=== PATIENT | male | born 1950 | race Caucasian/White ===

== ENCOUNTER 2017-11-30 15:38 | Emergency (ER) | payer OTHER ==
[2017-11-30 15:42] VITALS: TEMP 99.4
[2017-11-30] MEDS ORDERED: SODIUM CHLORIDE 0.9% 1,000 ML IV STA (15:50)
--- NOTE | 2017-11-30 15:53 | ED ---
General Adult HPI - General Chief complaint: Back Pain/Injury Stated complaint: Abd Pain Time Seen by Provider: 11/30/17 15:43 Source: patient, RN notes reviewed Mode of arrival: ambulatory Limitations: no limitations - History of Present Illness Initial comments: Patient 67-year-old male presenting to the emergency room today with a chief complaint of some lower back discomfort and some dysuria over the last 2 or 3 days. Patient does admit that he has tingling sensation lower size of his back. He states that his noticed that it miller when he urinates. He does not that he's had similar symptoms once in the past approximately 5 years ago and was related to his prostate. He states he does have a history of enlarged prostate. He did go to his family doctor proximally a month and a half ago for an annual physical. He states that the symptoms started 3 days ago seems to be increasing. Patient denies any other complaints symptoms at this time. Patient denies any recent fever, chills, shortness of breath, chest pain, abdominal pain , nausea or vomiting, numbness or tingling, hematuria, constipation or diarrhea , headaches or visual changes, or any other complaints. - Related Data Home Medications Medication Instructions Recorded Confirmed Actifed 1 tab PO DAILY 10/31/13 11/30/17 Aspirin 81 mg PO DAILY 10/31/13 11/30/17 Benazepril HCl 20 mg PO DAILY 10/31/13 11/30/17 Lansoprazole [Prevacid] 30 mg PO DAILY 10/31/13 11/30/17 Simvastatin [Zocor] 20 mg PO DAILY 10/31/13 11/30/17 Calcium Carbonate [Calcium] 600 mg PO DAILY 11/30/17 11/30/17 Hydrocortisone Cream 1 applic TOPICAL DAILY PRN 11/30/17 11/30/17 [Hydrocortisone 1% Cream] Naproxen Sodium [Aleve] 220 mg PO DAILY PRN 11/30/17 11/30/17 [place]-3 Fatty Acids/Fish Oil [Fish 1 cap PO DAILY 11/30/17 11/30/17 Oil 1,000 mg Softgel] Sildenafil Citrate [Viagra] 50 mg PO ONCE PRN 11/30/17 11/30/17 diphenhydrAMINE [Benadryl] 25 mg PO HS PRN 11/30/17 11/30/17 Previous Rx's Medication Instructions Recorded Ciprofloxacin HCl [Cipro] 500 mg PO Q12HR #28 day 11/30/17 Allergies Allergy/AdvReac Type Severity Reaction Status Date / Time warfarin sodium Allergy Swelling Verified 11/30/17 15:42 [From Coumadin] IN MOUTH adhesive AdvReac Rash/Hives Verified 11/30/17 15:58 latex AdvReac Rash/Hives Verified 11/30/17 15:58 SEASONAL AdvReac RUNNY Uncoded 11/30/17 15:42 NOSE, SNEEZING Review of Systems ROS Statement: Those systems with pertinent positive or pertinent negative responses have been documented in the HPI. ROS Other: All systems not noted in ROS Statement are negative. Past Medical History Past Medical History: Diabetes Mellitus, GERD/Reflux, Hyperlipidemia, Hypertension, Skin Disorder Additional Past Medical History / Comment(s): "BORDERLINE DM" History of Any Multi-Drug Resistant Organisms: None Reported Past Surgical History: Hernia Repair, Joint Replacement Additional Past Surgical History / Comment(s): TOTAL RT HIP Past Anesthesia/Blood Transfusion Reactions: No Reported Reaction Past Psychological History: No Psychological Hx Reported Smoking Status: Never smoker Past Alcohol Use History: Occasional Past Drug Use History: None Reported General Exam - General Exam Comments Initial Comments: General: The patient is awake and alert, in no distress, and does not appear acutely ill. Eye: Pupils are equal, round and reactive to light, extra-ocular movements are intact. No nystagmus. There is normal conjunctiva bilaterally. No signs of icterus. Ears, nose, mouth and throat: There are moist mucous membranes and no oral lesions. Neck: The neck is supple, there is no tenderness or JVD. Cardiovascular: There is a regular rate and rhythm. No murmur, rub or gallop is appreciated. Respiratory: Lungs are clear to auscultation, respirations are non-labored, breath sounds are equal. No wheezes, stridor, rales, or rhonchi. Gastrointestinal: Soft, non-distended, non-tender abdomen without masses or organomegaly noted. There is no rebound or guarding present. No CVA tenderness. Musculoskeletal: Normal ROM, no tenderness. Strength 5/5. Sensation intact. Pulses equal bilaterally 2+. Neurological: A&O x 3. CN II-XII intact, There are no obvious motor or sensory deficits. Coordination appears grossly intact. Speech is normal. Skin: Skin is warm and dry and no rashes or lesions are noted. Psychiatric: Cooperative, appropriate mood & affect, normal judgment. Limitations: no limitations Course Vital Signs 11/30/17 15:40 Temperature 99.4 F Pulse Rate 104 H Respiratory 20 Rate Blood Pressure 123/73 O2 Sat by Pulse 96 Oximetry Medical Decision Making - Medical Decision Making Patient's labs been reviewed does show 13,000 white count. Patient urinalysis reviewed and 65 white cells. Patient does admit to enlarged prostate as part of his history. He states he has had a urinary tract infection once in the past proximate 5 years ago. Patient will be treated for a prostatitis with antibiotics. Given dose of Rocephin here in emergency room discharged home on Cipro. Advised follow-up with urologist. - Lab Data Result diagrams: 11/30/17 15:55 11/30/17 15:55 Lab Results 11/30/17 11/30/17 11/30/17 Range/Units 15:55 15:55 15:55 WBC 13.7 H (3.8-10.6) k/uL RBC 4.94 (4.30-5.90) m/uL Hgb 15.0 (13.0-17.5) gm/dL Hct 45.0 (39.0-53.0) % MCV 91.1 (80.0-100.0) fL MCH 30.3 (25.0-35.0) pg MCHC 33.3 (31.0-37.0) g/dL RDW 13.3 (11.5-15.5) % Plt Count 228 (150-450) k/uL Neutrophils % 88 % Lymphocytes % 6 % Monocytes % 5 % Eosinophils % 1 % Basophils % 0 % Neutrophils # 12.0 H (1.3-7.7) k/uL Lymphocytes # 0.8 L (1.0-4.8) k/uL Monocytes # 0.6 (0-1.0) k/uL Eosinophils # 0.2 (0-0.7) k/uL Basophils # 0.0 (0-0.2) k/uL Sodium 135 L (137-145) mmol/L Potassium 4.2 (3.5-5.1) mmol/L Chloride 98 (98-107) mmol/L Carbon Dioxide 23 (22-30) mmol/L Anion Gap 14 mmol/L BUN 10 (9-20) mg/dL Creatinine 0.88 (0.66-1.25) mg/dL Est GFR (CKD-EPI)AfAm >90 (>60 ml/min/1.73 sqM) Est GFR (CKD-EPI)NonAf 90 (>60 ml/min/1.73 sqM) Glucose 210 H (74-99) mg/dL Calcium 9.1 (8.4-10.2) mg/dL Total Bilirubin 1.4 H (0.2-1.3) mg/dL AST 39 (17-59) U/L ALT 59 (21-72) U/L Alkaline Phosphatase 80 (38-126) U/L Total Protein 7.0 (6.3-8.2) g/dL Albumin 4.4 (3.5-5.0) g/dL Urine Color Yellow Urine Appearance Cloudy (Clear) Urine pH 6.0 (5.0-8.0) Ur Specific Badger 1.021 (1.001-1.035) Urine Protein 1+ H (Negative) Urine Glucose (UA) Trace H (Negative) Urine Ketones 1+ H (Negative) Urine Blood Trace H (Negative) Urine Nitrite Negative (Negative) Urine Bilirubin Negative (Negative) Urine Urobilinogen 4.0 (<2.0) mg/dL Ur Leukocyte Esterase Large H (Negative) Urine RBC 6 H (0-5) /hpf Urine WBC 65 H (0-5) /hpf Ur Squamous Epith Cells <1 (0-4) /hpf Urine Bacteria Few H (None) /hpf Urine Mucus Moderate H (None) /hpf Disposition Clinical Impression: Prostatitis Disposition: HOME SELF-CARE Condition: Good Instructions: Prostatitis (ED) Additional Instructions: Please use medication as discussed. Please follow-up with urologist/family doctor in the next 2 days of symptoms have not improved. Please return to emergency room if the symptoms increase or worsen or for any other concerns. Prescriptions: Ciprofloxacin HCl [Cipro] 500 mg PO Q12HR #28 day Is patient prescribed a controlled substance at d/c from ED?: No Referrals: Toan Louis MD [Primary Care Provider] - 1-2 days Time of Disposition: 17:00
[2017-11-30 16:12] LABS: Appearance,Urine Cloudy (Clear); Bacteria,Urine Few /hpf; Basophils % (A) 0 %; Bilirubin,Urine Negative (Negative); Blood,Urine Trace (Negative); Color,Urine Yellow; Eosinophils # (A) 0.2 k/uL (0-0.7); Eosinophils % (A) 1 %; Glucose,Urine (UA) Trace (Negative); Ketones,Urine 1+ (Negative); Leukocyte Esterase,Urine Large (Negative); Lymphocytes # (A) 0.8 k/uL (1.0-4.8); Lymphocytes % (A) 6 %; MCH 30.3 pg (25.0-35.0); MCHC 33.3 g/dL (31.0-37.0); MCV 91.1 fL (80.0-100.0); Mean Platelet Volume 6.4; Monocytes # (A) 0.6 k/uL (0-1.0); Monocytes % (A) 5 %; Mucus,Urine Moderate /hpf; Neutrophils % (A) 88 %; Nitrite,Urine Negative (Negative); Platelet Count 228 k/uL (150-450); Protein,Urine 1+ (Negative); RBC 4.94 m/uL (4.30-5.90); RBC,Urine 6 /hpf (0-5); RDW 13.3 % (11.5-15.5); Specific Gravity,Urine 1.021 (1.001-1.035); Squamous Epithelial Cell,Urine <1 /hpf (0-4); WBC 13.7 k/uL (3.8-10.6); WBC,Urine 65 /hpf (0-5)
[2017-11-30 16:19] LABS: ALT 59 U/L (21-72); AST 39 U/L (17-59); Albumin 4.4 g/dL (3.5-5.0); Alkaline Phosphatase 80 U/L (38-126); Anion Gap 14 mmol/L; Blood Urea Nitrogen 10 mg/dL (9-20); Calcium 9.1 mg/dL (8.4-10.2); Carbon Dioxide 23 mmol/L (22-30); Chloride 98 mmol/L (98-107); Glucose 210 mg/dL (74-99); Potassium 4.2 mmol/L (3.5-5.1); Sodium 135 mmol/L (137-145); Total Bilirubin 1.4 mg/dL (0.2-1.3)
[2017-11-30] MEDS ORDERED: cefTRIAXone 2,000 MG in SODIUM CHLORIDE 0.9% 100 ML IVPB STA (17:00)
[2017-11-30] MEDS ORDERED: cefTRIAXone IN SWFI 2,000 MG/20 ML SYRINGE IVP STA (17:03)
[2017-11-30 17:22] VITALS: BP 136/60; PULSE 92; RESP 18
== END 2017-11-30 17:29 | disposition home or self-care (01) ==
LOC: EC 15:38
DX: N41.9 Inflammatory disease of prostate, unspecified (principal); K21.9 Gastro-esophageal reflux disease without esophagitis; E78.5 Hyperlipidemia, unspecified; I10 Essential (primary) hypertension; Z79.82 Long term (current) use of aspirin; Z79.899 Other long term (current) drug therapy; Z88.8 Allergy status to other drugs, medicaments and biological substances; Z91.048 Other nonmedicinal substance allergy status; Z91.040 Latex allergy status; Z96.641 Presence of right artificial hip joint
CPT/HCPCS: 36415; 80053; 85025; 81001; 87086; 99283; 96374; 96361; J0696; 87077; 87186

== ENCOUNTER → 2021-11-27 | Outpatient (CLI) | payer BC ==
--- NOTE | 2021-11-27 12:53 | US ---
EXAMINATION TYPE: US abdomen complete DATE OF EXAM: 11/27/2021 COMPARISON: NONE CLINICAL HISTORY: R79.89 ELEVATED LIVER FUNCTIONS. elevated labs, no symptoms EXAM MEASUREMENTS: Liver Length: 17.3 cm Gallbladder Wall: 0.2 cm CBD: 0.3 cm Spleen: 11.4 cm Right Kidney: 10.4 x 3.8 x 6.0 cm Left Kidney: 10.9 x 4.8 x 6.0 cm Pancreas: wnl Liver: difficult to penetrate Gallbladder: sludge seen within dependant portion Evidence for sonographic Clifford's sign: no CBD: wnl Spleen: wnl Right Kidney: wnl Left Kidney: wnl Upper IVC: wnl Abd Aorta: wnl The visualized liver is heterogeneously hyperechoic. Evaluation for focal masses suboptimal due to th e heterogeneity. No surrounding ascites. The intrahepatic portion of the IVC and visualized mid and d istal abdominal aorta are within normal limits. There is no evidence of cholelithiasis. Common bile duct is unremarkable. The visualized portions of the pancreas are homogenous. The spleen is normal in size. Kidneys are symmetric and free of hydronephrosis. No renal lesions are seen. IMPRESSION: Heterogeneous hyperechoic appearance of liver consistent with diffuse fatty infiltration and/or underlying hepatocellular disease. Patient may benefit with ultrasound-guided elastography and /or random sampling to further evaluate if desired.
== END | disposition home or self-care (01) ==
LOC: RADUSWWP 08:19
PROVIDERS: ATTEND Internal Medicine
DX: R79.89 Other specified abnormal findings of blood chemistry (principal)
CPT/HCPCS: 76700

== ENCOUNTER 2021-12-07 10:21 | Emergency (ER) | payer BC, MEDICARE ==
[2021-12-07 10:25] VITALS: BP 105/69; PULSE 106; RESP 16; TEMP 97.6
[2021-12-07 11:03] LABS: Mucus,Urine Many /hpf; RBC,Urine >182 /hpf (0-5); WBC,Urine >182 /hpf (0-5)
[2021-12-07 11:08] LABS: Appearance,Urine Bloody (Clear)
[2021-12-07] MEDS ORDERED: SODIUM CHLORIDE 0.9% 1,000 ML IV STA (11:20)
--- NOTE | 2021-12-07 11:34 | ED ---
General Adult HPI - General Chief complaint: Urogenital Stated complaint: Blood in urine/chills Source: patient Mode of arrival: ambulatory Limitations: no limitations - History of Present Illness Initial comments: Patient is a 71-year-old male presents to the emergency room with sudden onset of gross hematuria along with urinary frequency. He reports that the urinary frequency began yesterday. He reports that he had hematuria many years ago due to a UTI but was not evaluated by urology at that time. He states that the blood in his urine began approximately 3 hours ago. He also states that he is concerned regarding an allergic reaction to oysters that he ate earlier in the week. He states that he ate them 3 weeks ago as well and developed some urticaria along with shortness of breath and a cough. He is complaining of a cough and chills but denies any shortness of breath, chest pain, nausea, vomiting or diarrhea at this time. At that time 3 weeks ago he did take a COVID test that was negative. He denies any influenza or COVID exposure. He reports that he has been told that he does have an enlarged prostate but denies any concern for prostate cancer. He denies past medical history of kidney or urinary stones. He denies any family history of prostate, bladder or renal cell carcinoma or nephrolithiasis. He has a past medical history significant for nancy medellin diabetes, hypertension and hyperlipidemia. He denies any other complaints or concerns at this time. - Related Data Home Medications Medication Instructions Recorded Confirmed Actifed 1 tab PO DAILY 10/31/13 12/08/17 Aspirin 81 mg PO DAILY 10/31/13 12/08/17 Benazepril HCl 20 mg PO DAILY 10/31/13 12/08/17 Lansoprazole [Prevacid] 30 mg PO DAILY 10/31/13 12/08/17 Simvastatin [Zocor] 20 mg PO DAILY 10/31/13 12/08/17 Calcium Carbonate [Calcium] 600 mg PO DAILY 11/30/17 12/08/17 Hydrocortisone Cream 1 applic TOPICAL DAILY PRN 11/30/17 12/08/17 [Hydrocortisone 1% Cream] Naproxen Sodium [Aleve] 220 mg PO DAILY PRN 11/30/17 12/08/17 [place]-3 Fatty Acids/Fish Oil [Fish 1 cap PO DAILY 11/30/17 12/08/17 Oil 1,000 mg Softgel] Sildenafil Citrate [Viagra] 50 mg PO ONCE PRN 11/30/17 12/08/17 diphenhydrAMINE [Benadryl] 25 mg PO HS PRN 11/30/17 12/08/17 Previous Rx's Medication Instructions Recorded Ciprofloxacin HCl [Cipro] 500 mg PO Q12HR #28 day 11/30/17 Ciprofloxacin HCl 500 mg PO Q12HR 10 Days #20 tablet 12/07/21 Allergies Allergy/AdvReac Type Severity Reaction Status Date / Time warfarin sodium Allergy Swelling Verified 12/07/21 10:26 [From Coumadin] IN MOUTH adhesive AdvReac Rash/Hives Verified 12/07/21 10:26 latex AdvReac Rash/Hives Verified 12/07/21 10:26 SEASONAL AdvReac Unknown RUNNY Uncoded 12/07/21 10:26 NOSE, SNEEZING Review of Systems ROS Statement: Those systems with pertinent positive or pertinent negative responses have been documented in the HPI. ROS Other: All systems not noted in ROS Statement are negative. Past Medical History Past Medical History: Diabetes Mellitus, GERD/Reflux, Hyperlipidemia, Hypertension, Skin Disorder Additional Past Medical History / Comment(s): "BORDERLINE DM" History of Any Multi-Drug Resistant Organisms: None Reported Past Surgical History: Hernia Repair, Joint Replacement Additional Past Surgical History / Comment(s): TOTAL RT HIP Past Anesthesia/Blood Transfusion Reactions: No Reported Reaction Past Psychological History: No Psychological Hx Reported Past Alcohol Use History: Occasional Past Drug Use History: None Reported General Exam Limitations: no limitations General appearance: alert, in no apparent distress Head exam: Present: atraumatic, normocephalic, normal inspection Eye exam: Present: normal appearance, PERRL, EOMI. Absent: scleral icterus, conjunctival injection, periorbital swelling ENT exam: Present: normal exam, mucous membranes moist Neck exam: Present: normal inspection Respiratory exam: Present: normal lung sounds bilaterally. Absent: respiratory distress, wheezes, rales, rhonchi, stridor Cardiovascular Exam: Present: regular rate, normal rhythm, normal heart sounds. Absent: systolic murmur, diastolic murmur, rubs, gallop, clicks GI/Abdominal exam: Present: soft, tenderness (mid lower ), normal bowel sounds Rectal exam: Present: deferred Extremities exam: Present: normal inspection, full ROM, normal capillary refill. Absent: tenderness, pedal edema, joint swelling, calf tenderness Neurological exam: Present: alert, oriented X3, CN II-XII intact Psychiatric exam: Present: normal affect, normal mood Skin exam: Present: warm, dry, intact, normal color. Absent: rash Course Vital Signs 12/07/21 10:23 Temperature 97.6 F Pulse Rate 106 H Respiratory 16 Rate Blood Pressure 105/69 O2 Sat by Pulse 95 Oximetry Medical Decision Making - Medical Decision Making Due to gross hematuria will check CBC, CMP along with CT abdomen and pelvis. Will give IV hydration and monitor. Leukocytosis noted consistent with infection of cystitis. Computed tomography scan shows probable infectious cystitis however cannot rule out neoplasm and recommend urology consult. Case discussed with Dr. Blevins to advise treatment for urinary tract infection urinary culture and follow-up outpatient in their office. Case discussed with Dr. Rosario Will give dose of IVP Rocephin and discharged home on oral antibiotics with encouraged of good fluid intake and strict return parameters. - Lab Data Result diagrams: 12/07/21 11:47 12/07/21 11:47 Lab Results 12/07/21 12/07/21 12/07/21 Range/Units 10:46 11:47 11:47 WBC 18.5 H (3.8-10.6) k/uL RBC 4.63 (4.30-5.90) m/uL Hgb 14.5 (13.0-17.5) gm/dL Hct 43.4 (39.0-53.0) % MCV 93.7 (80.0-100.0) fL MCH 31.3 (25.0-35.0) pg MCHC 33.4 (31.0-37.0) g/dL RDW 12.8 (11.5-15.5) % Plt Count 315 (150-450) k/uL MPV 7.6 Neutrophils % 81 % Lymphocytes % 9 % Monocytes % 7 % Eosinophils % 1 % Basophils % 1 % Neutrophils # 14.9 H (1.3-7.7) k/uL Lymphocytes # 1.7 (1.0-4.8) k/uL Monocytes # 1.2 H (0-1.0) k/uL Eosinophils # 0.2 (0-0.7) k/uL Basophils # 0.1 (0-0.2) k/uL Sodium 133 L (137-145) mmol/L Potassium 4.4 (3.5-5.1) mmol/L Chloride 100 (98-107) mmol/L Carbon Dioxide 22 (22-30) mmol/L Anion Gap 11 mmol/L BUN 13 (9-20) mg/dL Creatinine 0.85 (0.66-1.25) mg/dL Est GFR (CKD-EPI)AfAm >90 (>60 ml/min/1.73 sqM) Est GFR (CKD-EPI)NonAf 88 (>60 ml/min/1.73 sqM) Glucose 157 H (74-99) mg/dL Calcium 9.1 (8.4-10.2) mg/dL Total Bilirubin 1.4 H (0.2-1.3) mg/dL AST 26 (17-59) U/L ALT 31 (4-49) U/L Alkaline Phosphatase 75 (38-126) U/L Total Protein 6.7 (6.3-8.2) g/dL Albumin 4.0 (3.5-5.0) g/dL Urine Appearance Bloody (Clear) Urine RBC >182 H (0-5) /hpf Urine WBC >182 H (0-5) /hpf Urine WBC Clumps Many H (None) /hpf Urine Mucus Many H (None) /hpf Coronavirus (PCR) (Not Detectd) Influenza Type A RNA (Not Detectd) Influenza Type B (PCR) (Not Detectd) 12/07/21 12/07/21 Range/Units 11:47 11:47 WBC (3.8-10.6) k/uL RBC (4.30-5.90) m/uL Hgb (13.0-17.5) gm/dL Hct (39.0-53.0) % MCV (80.0-100.0) fL MCH (25.0-35.0) pg MCHC (31.0-37.0) g/dL RDW (11.5-15.5) % Plt Count (150-450) k/uL MPV Neutrophils % % Lymphocytes % % Monocytes % % Eosinophils % % Basophils % % Neutrophils # (1.3-7.7) k/uL Lymphocytes # (1.0-4.8) k/uL Monocytes # (0-1.0) k/uL Eosinophils # (0-0.7) k/uL Basophils # (0-0.2) k/uL Sodium (137-145) mmol/L Potassium (3.5-5.1) mmol/L Chloride (98-107) mmol/L Carbon Dioxide (22-30) mmol/L Anion Gap mmol/L BUN (9-20) mg/dL Creatinine (0.66-1.25) mg/dL Est GFR (CKD-EPI)AfAm (>60 ml/min/1.73 sqM) Est GFR (CKD-EPI)NonAf (>60 ml/min/1.73 sqM) Glucose (74-99) mg/dL Calcium (8.4-10.2) mg/dL Total Bilirubin (0.2-1.3) mg/dL AST (17-59) U/L ALT (4-49) U/L Alkaline Phosphatase (38-126) U/L Total Protein (6.3-8.2) g/dL Albumin (3.5-5.0) g/dL Urine Appearance (Clear) Urine RBC (0-5) /hpf Urine WBC (0-5) /hpf Urine WBC Clumps (None) /hpf Urine Mucus (None) /hpf Coronavirus (PCR) Not Detected (Not Detectd) Influenza Type A RNA Not Detected (Not Detectd) Influenza Type B (PCR) Not Detected (Not Detectd) - Radiology Data Radiology results: report reviewed, image reviewed CT abdomen and pelvis impression 1. Probable infectious cystitis. Cystitis of other etiology not excluded. Neoplasm is also within differential diagnosis. Urology consult advice. Disposition Clinical Impression: Acute infective cystitis Disposition: HOME SELF-CARE Condition: Stable Instructions (If sedation given, give patient instructions): Urinary Tract Infection in Men (ED), Hematuria (ED) Additional Instructions: Please complete antibiotic course as prescribed. Drink plenty of fluids. If at any point bleeding and urine worsens or decrease in urine output please return t o the emergency room or seek immediate medical attention as appropriate. Please return to the Emergency Department if symptoms worsen or any other concerns. Prescriptions: Ciprofloxacin HCl 500 mg PO Q12HR 10 Days #20 tablet Is patient prescribed a controlled substance at d/c from ED?: No Referrals: David Canchola MD [Primary Care Provider] - 1-2 days Danny Blevins MD [STAFF PHYSICIAN] - 1-2 days Time of Disposition: 13:18
[2021-12-07 11:55] LABS: Basophils # (A) 0.1 k/uL (0-0.2); Basophils % (A) 1 %; Eosinophils # (A) 0.2 k/uL (0-0.7); Eosinophils % (A) 1 %; HCT 43.4 % (39.0-53.0); HGB 14.5 gm/dL (13.0-17.5); Lymphocytes # (A) 1.7 k/uL (1.0-4.8); Lymphocytes % (A) 9 %; MCH 31.3 pg (25.0-35.0); MCHC 33.4 g/dL (31.0-37.0); MCV 93.7 fL (80.0-100.0); Mean Platelet Volume 7.6; Monocytes # (A) 1.2 k/uL (0-1.0); Monocytes % (A) 7 %; Neutrophils # (A) 14.9 k/uL (1.3-7.7); Neutrophils % (A) 81 %; Platelet Count 315 k/uL (150-450); RBC 4.63 m/uL (4.30-5.90); RDW 12.8 % (11.5-15.5); WBC 18.5 k/uL (3.8-10.6)
[2021-12-07 12:03] LABS: ALT 31 U/L (4-49); AST 26 U/L (17-59); African American GFR (CKD) >90 (>60 ml/min/1.73 sqM); Alkaline Phosphatase 75 U/L (38-126); Anion Gap 11 mmol/L; Blood Urea Nitrogen 13 mg/dL (9-20); Calcium 9.1 mg/dL (8.4-10.2); Carbon Dioxide 22 mmol/L (22-30); Chloride 100 mmol/L (98-107); Glucose 157 mg/dL (74-99); Non-African American GFR(CKD) 88 (>60 ml/min/1.73 sqM); Potassium 4.4 mmol/L (3.5-5.1); Sodium 133 mmol/L (137-145); Total Bilirubin 1.4 mg/dL (0.2-1.3); Total Protein 6.7 g/dL (6.3-8.2)
--- NOTE | 2021-12-07 13:01 | CT ---
EXAMINATION TYPE: CT abdomen pelvis w con DATE OF EXAM: 12/07/2021 COMPARISON: None HISTORY: New onset of gross hematuria CT DLP: 1585.8 mGycm CONTRAST: CT scan of the abdomen and pelvis is performed without Oral Contrast and with IV Contrast, patient in jected with 100 mL of Isovue 300. FINDINGS: LUNG BASES-: No visible nodule. No infiltrate. LIVER/GB: No calcified gallstones. No space occupying hepatic lesion. Biliary tree is of normal ca liber. Focal fat adjacent to the falciform ligament. Mild hepatic steatosis. PANCREAS: No inflammation. No distinct mass. SPLEEN: No splenic enlargement. No lesion seen. ADRENALS: No nodule. No thickening. KIDNEYS/BLADDER: No hydronephrosis. No nephrolithiasis. No distinct renal mass. Severe urinary jose de jesus dder wall thickening which is circumferential and likely reflects underlying nonspecific cystitis. Ne oplasm not excluded. Urology consult advised. BOWEL: Normal appendix. Normal bowel caliber. No inflammation. GENITAL ORGANS: No gross abnormality. LYMPH NODES: No greater than 1cm abdominal or pelvic lymph nodes are appreciated. AORTA: No significant abnormality. OSSEOUS STRUCTURES: Right hip prosthesis with resultant streak artifact. OTHER: No significant additional abnormality is seen. IMPRESSION: 1. Probable infectious cystitis. Cystitis of other etiology not excluded. Neoplasm is also within the differential diagnosis. Urology consult advised.
[2021-12-07] MEDS ORDERED: cefTRIAXone IN SWFI 1,000 MG/10 ML SYRINGE IVP STA (13:13)
[2021-12-07 14:52] LABS: Appearance,Urine Clear (Clear); Bilirubin,Urine Negative (Negative); Blood,Urine Large (Negative); Color,Urine Red; Glucose,Urine (UA) Negative (Negative); Ketones,Urine 2+ (Negative); Leukocyte Esterase,Urine Small (Negative); Nitrite,Urine Negative (Negative); Protein,Urine 1+ (Negative); RBC,Urine >182 /hpf (0-5); Urobilinogen,Urine <2.0 mg/dL (<2.0); WBC,Urine 3 /hpf (0-5)
[2021-12-07 14:53] LABS: Specific Gravity,Urine >1.050 (1.001-1.035)
== END 2021-12-07 14:23 | disposition home or self-care (01) ==
LOC: EC 10:21
DX: N30.01 Acute cystitis with hematuria (principal); Z20.822 Contact with and (suspected) exposure to COVID-19; I10 Essential (primary) hypertension; E78.5 Hyperlipidemia, unspecified; K21.9 Gastro-esophageal reflux disease without esophagitis; Z79.82 Long term (current) use of aspirin; Z79.899 Other long term (current) drug therapy
CPT/HCPCS: 36415; 80053; 85025; 81001; 87086; 87502; 87635; 74177; 99284; 96374; 96360; 96361; J0696; Q9967; 87077; 87186

== ENCOUNTER → 2023-03-25 | Outpatient (CLI) | payer BC, MEDICARE ==
[2023-03-25 11:53] VITALS: BP 144/84; PULSE 82; RESP 15; TEMP 98.6
--- NOTE | 2023-03-25 14:43 | P.PAINPG ---
PQRS Measure Charge Sheet Comment: HISTORY OF PRESENT ILLNESS: 72 yr old male as a referral from Dr Pitts presents today w severe and chronic LBP x 1 yr secondary to post laminectomy syndrome for evaluation. Pt states pain level is provoked at 6/10 in intensity, constant, localized in the mid to lower lumbar spine, achy in character w shooting pain towards the L ankle. Pain is provoked by weight bearing activity. Pain is alleviated by PT x 6 wks in Sep 2022, medications (Aleve), repositioning and rest. Oswestry axial pain score at 26. PMH: OA, DM II, GERD, Hyperlipidemia, HTN PSH: Hernia Repair, R Total Hip Replacement, L4-L5 Discectomy SH: No tobacco use, Occasional ETOH use, No illicit drug use FH: Non contributory All: See list Meds: See list REVIEW OF ORGAN SYSTEMS: CONSTITUTIONAL: No fevers or chills. No recent weight loss. NEUROLOGICAL: + numbness and tingling along the distal extremities. No seizure disorders or headaches. MUSCULOSKELETAL: + pain PSYCHIATRIC: Denies current depression or suicidal thoughts. Physical Examinations : Constitutional : Cooperative , not in acute distress . Neurologic : Cranial nerve II to XII intact. No focal neurological deficits. Psychiatric : alert & oriented x 3. Matching mood & appropriate affect. Judgment & insight intact. Musculoskeletal : Cervical Spine Motor strength in the deltoid and yasmani ps: Normal right side. Normal Left side Motor strength biceps and the wrist extensors: Normal right side . Normal left side Motor strength in the triceps muscle: Normal right side. Normal left side Deep tendon reflexes: Normal at the biceps. Normal at Brachioradialis. Normal at triceps Vertebral body tenderness to deep palpation over Cervical facet loading test: positive bilaterally Spurling test: positive bilaterally Neck distraction test: positive bilaterally Bessie sign: positive bilaterally Lumbar spine Motor strength lower extremities ,thigh and legs 5/5 Right side , 5/5 Left side Deep tendon reflexes : Normal Knee Jerk. Normal Ankle Jerk Vertebral body tenderness over Herrera Test positive Lumbar facet Loading Test: positive Right / positive Left Range of motion of the lumbar spine Flexion 30 degrees, extension 10 degrees Straight Leg Raise test: Left/ Right positive at degree Susi test: positive right / positive left. Severe tenderness over the Sacroiliac joint on the Right / Left sides Gaenslen test: positive bilaterally Seated flexion test: positive bilaterally. Sacral spine : Severe tenderness over the Sacroiliac joint: right side / left side Range of motion: Flexion of the lumbar spine <60 degrees Range of motion: Extension of the lumbar spine <20 degrees Gaenslen's Test positive Flakito's Test positive Susi test: positive right side / left side Thigh Thrust Test Sacral Thrust Test Imaging: MRI noncontrast of the lumbar spine from 08/26/22 reviewed Assessment/ Plan : Post laminectomy syndrome Recommendation of PT x 6 wks M51.36. RTC in 6 wks for a re evaluation. All questions answered. I have spent greater than 30 minutes on patient care today. Dr Crespo was available by phone for the evaluation of this patient. The time was used to review the medical records including relevant urine studies and Prescription history (MAPs), review of the available imaging, evaluation and examination of the patient, coordination of care with the medical staff and if applicable referring physicians, as well as creation of the medical record PQRS Narrative: Smoking Status Never smoker Home Medications: Ambulatory Orders Actifed 1 tab PO DAILY 10/31/13 Aspirin 81 mg PO DAILY 10/31/13 Benazepril HCl 20 mg PO DAILY 10/31/13 Lansoprazole [Prevacid] 30 mg PO DAILY 10/31/13 Simvastatin [Zocor] 20 mg PO DAILY 10/31/13 Calcium Carbonate [Calcium] 600 mg PO DAILY 11/30/17 Ciprofloxacin HCl [Cipro] 500 mg PO Q12HR #28 day 11/30/17 Hydrocortisone Cream [Hydrocortisone 1% Cream] 1 applic TOPICAL DAILY PRN 11/30/17 Naproxen Sodium [Aleve] 220 mg PO DAILY PRN 11/30/17 [place]-3 Fatty Acids/Fish Oil [Fish Oil 1,000 mg Softgel] 1 cap PO DAILY 11/30/17 Sildenafil Citrate [Viagra] 50 mg PO ONCE PRN 11/30/17 diphenhydrAMINE [Benadryl] 25 mg PO HS PRN 11/30/17 Ciprofloxacin HCl 500 mg PO Q12HR 10 Days #20 tablet 12/07/21 Controlled Substance Measures - Controlled Substance Measures Is patient prescribed a controlled substance at discharge?: No
== END ==
LOC: PNWHC3 08:49
PROVIDERS: ATTEND Specialist
DX: M48.061 Spinal stenosis, lumbar region without neurogenic claudication (principal); M96.1 Postlaminectomy syndrome, not elsewhere classified; M19.90 Unspecified osteoarthritis, unspecified site; E11.9 Type 2 diabetes mellitus without complications; K21.9 Gastro-esophageal reflux disease without esophagitis; E78.5 Hyperlipidemia, unspecified; I10 Essential (primary) hypertension; Z91.048 Other nonmedicinal substance allergy status; Z91.040 Latex allergy status; Z91.09 Other allergy status, other than to drugs and biological substances; Z88.8 Allergy status to other drugs, medicaments and biological substances; Z79.82 Long term (current) use of aspirin; Z79.899 Other long term (current) drug therapy
CPT/HCPCS: 99211

== ENCOUNTER 2023-04-09 06:27 | Day surgery (SDC) | payer BC ==
[2023-04-09 07:21] LABS: Glucose,Whole Blood 133 mg/dL (70-110)
[2023-04-09 07:24] VITALS: TEMP 97.6
[2023-04-09] MEDS ORDERED: LACTATED RINGERS 1,000 ML IV SCH (07:28)
[2023-04-09] MEDS ORDERED: IOPAMIDOL M200 10 ML VIAL ONE (07:38)
[2023-04-09] MEDS ORDERED: methylPREDNISolone ACETATE 40 MG/ML 1 ML VIAL ONE (07:38)
--- NOTE | 2023-04-09 07:44 | P.PCN ---
Date of Procedure: 04/09/23 Procedure(s) Performed: PREOPERATIVE DIAGNOSIS: 1- Lumbar Degenerative Disc Diseases 2-Lumbar spondylosis with Facet arthropathy without myelopathy. POSTOPERATIVE DIAGNOSIS: 1-lumbar degenerative disc disease. 2-lumbar spondylosis with facet arthropathy without myelopathy. PROCEDURE 1. Lumbar epidural steroid injection under fluoroscopic guidance at the L5-S1 level. (Fluoroscopy imaging was available in radiology department) 2. Lumbar epidurogram. ANESTHESIA: Lidocaine 1% 3 and then only. EBL: Minimal PROCEDURE INDICATION: The patient with low back pain and radiculitis symptoms unresponsive to conservative treatment. Fluoroscopy was used to optimize visualization of the needle placement and to maximize safety. PROCEDURE DESCRIPTION / TECHNIQUE: The patient was seen and identified in the preoperative area. Risks, benefits, complications including but not limited to infections ,bleeding ,allergic reaction to the medications ,nerve damage and not complete pain releife , and alternatives were discussed with the patient. The patient agreed to proceed with the procedure and signed the consent, and vital signs were stable. Patient was taken to the OR and time out was completed. The patient was placed in the prone position on procedure table and a pillow was placed under the abdomen to reduce lumbar lordosis. The lumbosacral area was prepped and draped in the usual sterile fashion.ere closely monitored during the procedure. Vital signs was monitered during the entire procedure. Using anterior-posterior fluoroscopy, the L5-S1 interlaminar space was identified and the skin over this site was marked and then infiltrated with 1% lidocaine subcutaneously. Subsequently, a 20-gauge Tuohy epidural needle was inserted and advanced toward the epidural space using the ``Loss of resistance technique and guided by AP and lateral fluoroscopy. The correct needle position in the epidural space was verified with the injection of 2 mL of the water soluble contrast dye Isovue 200 contrast and observing an excellent epidurogram with the epidural spread of the dye, after negative aspiration for blood and CSF and in the absence of paresthesias. Again after negative aspiration, a 6 ml mixture containing 40 mg of Depo-medrol ( Preservetive Free ), and 2 ml of preservative free Normal Saline, and 2 ml of preservative free lidocaine 1% solution was injected and a washout of epidurogram was seen. Needle was withdrawn intact, skin was cleansed, and bandages were applied. COMPLICATIONS: None DISPOSITION / PLANS: The patient was placed in a supine position and transferred to the recovery area in a stable condition for observation. There was no e vidence of lower extremity motor or sensory deficit after the procedure. Patient was discharged from the recovery room after meeting discharge criteria. Home discharge instructions were given to the patient by the staff. The patient was reexamined prior to discharge. The patient will schedule a follow up in the clinic in 2-4 weeks.
[2023-04-09 08:06] VITALS: BP 100/58; PULSE 75; RESP 16
--- NOTE | 2023-04-09 08:23 | FL ---
Intraoperative/procedural fluoroscopic services were provided for lumbar epidural steroid injection. Total fluoroscopy time is 1.8 seconds with a total of 1 submitted image to PACS. Total DAP [id number] mG ym2. Please see the operative note for further details.
== END 2023-04-09 08:18 | disposition home or self-care (01) ==
LOC: ORPAIN 06:27
PROVIDERS: ATTEND Specialist
DX: M51.16 Intervertebral disc disorders with radiculopathy, lumbar region (principal); M47.26 Other spondylosis with radiculopathy, lumbar region; E11.9 Type 2 diabetes mellitus without complications; J30.2 Other seasonal allergic rhinitis; Z79.82 Long term (current) use of aspirin; Z88.8 Allergy status to other drugs, medicaments and biological substances; Z91.040 Latex allergy status; Z91.048 Other nonmedicinal substance allergy status
CPT/HCPCS: 62323; J1030; Q9966

== ENCOUNTER → 2024-04-19 | Outpatient (CLI) | payer BC ==
--- NOTE | 2024-04-20 10:51 | CA ---
Transthoracic Echo Report Name: Freddy Ramirez Age: 73 Gender: M : 1950 Exam Date: 04/19/2024 15:29 Exam Location: [facility] Ht (in): 70 Wt (lb): 190 Ordering Physician: Aries Pitts MD Attending/Referring Phys: Project Control Officer Usha Kruse RDCS Procedure CPT: Indications: I65.23 CAROTID STENOSIS I25.10 ATHERO HEART DISEAS Cardiac Hx: Technical Quality: Fair Contrast 1: Total Dose (mL): Contrast 2: Total Dose (mL): MEASUREMENTS (Male / Female) Normal Values 2D ECHO LV Diastolic Diameter PLAX 4.5 cm 4.2 - 5.9 / 3.9 - 5.3 cm LV Systolic Diameter PLAX 3.1 cm IVS Diastolic Thickness 1.1 cm 0.6 - 1.0 / 0.6 - 0.9 cm LVPW Diastolic Thickness 1.1 cm 0.6 - 1.0 / 0.6 - 0.9 cm LV Relative Wall Thickness 0.5 RV Internal Dim ED PLAX 3.1 cm LA Systolic Diameter LX 4.0 cm 3.0 - 4.0 / 2.7 - 3.8 cm LV Diastolic Volume MOD 4C 46.4 cm??? LV Systolic Volume MOD 4C 18.4 cm??? LV Ejection Fraction MOD 4C 60.4 % LV Cardiac Index MOD 4C 1185.4 cm???/min???m??? LV Diastolic Length 4C 5.4 cm LV Systolic Length 4C 4.6 cm LV Diastolic Volume MOD 2C 70.3 cm??? LV Systolic Volume MOD 2C 25.9 cm??? LV Ejection Fraction MOD 2C 63.2 % LV Cardiac Index MOD 2C 1879.8 cm???/min???m??? LV Diastolic Length 2C 7.4 cm LV Systolic Length 2C 6.3 cm M-MODE Aortic Root Diameter MM 3.5 cm LA Systolic Diameter MM 1.8 cm LA Ao Ratio MM 0.5 DOPPLER AV Peak Velocity 132.7 cm/s AV Peak Gradient 7.0 mmHg Mitral E Point Velocity 52.6 cm/s Mitral A Point Velocity 57.5 cm/s Mitral E to A Ratio 0.9 MV Deceleration Time 222.3 ms MV E' Velocity 6.7 cm/s Mitral E to MV E' Ratio 7.8 FINDINGS Left Ventricle Left ventricular ejection fraction is estimated at 55-60 %. Left ventricular cavity size normal. Mildly increased septal wall thickness. Normal left ventricular wall motion. Right Ventricle Normal right ventricular size and function. Unable to estimate the right ventricular systolic pressure. Right Atrium Normal right atrial size. No right atrial thrombus or mass seen. Left Atrium Normal left atrial size. No left atrial thrombus or mass present. Mitral Valve Structurally normal mitral valve. No mitral stenosis, regurgitation or prolapse. Aortic Valve Trileaflet aortic valve. No aortic stenosis. No aortic regurgitation. Tricuspid Valve Structurally normal tricuspid valve. No tricuspid stenosis, regurgitation or prolapse. Pulmonic Valve Structurally normal pulmonic valve. No pulmonic regurgitation. Pericardium No pericardial or pleural effusion. Aorta Normal size aortic root and proximal ascending aorta. CONCLUSIONS Normal LV function Previewed by: Dr. Mateo Wright MD (Electronically Signed) Final Date: 20 April 2024 10:50
== END | disposition home or self-care (01) ==
LOC: RADECHMAIN 15:18
PROVIDERS: ATTEND Internal Medicine
DX: I65.23 Occlusion and stenosis of bilateral carotid arteries (principal); I25.10 Atherosclerotic heart disease of native coronary artery without angina pectoris
CPT/HCPCS: 93306

== ENCOUNTER 2024-10-18 07:39 | Day surgery (SDC) | payer BC ==
[~2024-10-18 07:39] MED LIST: LIDOCAINE 1% (10MG/ML) FOR IV START INTRADERMA PRN
[2024-10-18 08:14] VITALS: TEMP 96.9
[2024-10-18] MEDS: IV FLUID CONTINUATION 1,000 ML IV ONE (08:20)
[2024-10-18 08:21] LABS: Glucose,Whole Blood 137 mg/dL (70-110)
[2024-10-18] MEDS: LACTATED RINGERS 1,000 ML IV SCH (08:21)
[2024-10-18] MEDS ORDERED: PROPOFOL 10 MG/ML 20 ML VIAL IV ONE (08:48)
--- NOTE | 2024-10-18 09:07 | P.PCN ---
Date of Procedure: 10/18/24 Procedure(s) Performed: BRIEF HISTORY: Patient is a 74-year-old pleasant white male scheduled for an elective colonoscopy as a part of screening for colon cancer. PROCEDURE PERFORMED: Colonoscopy. PREOPERATIVE DIAGNOSIS: Screening for colon cancer. IV sedation per Anesthesia. PROCEDURE: After informed consent was obtained, the patient, was brought into the endoscopy unit. IV sedation was administered by Anesthesia under continuous monitoring. Digital rectal examination was normal. Initially the Olympus CF-160 flexible video colonoscope was then inserted in the rectum, gradually advanced into the cecum without any difficulty. Careful examination was performed as the scope was gradually being withdrawn. Ileocecal valve and the appendiceal orifice were visualized and appeared normal. Prep was excellent. Mucosa of the cecum, ascending colon, transverse colon, descending colon, sigmoid colon, and rectum appeared normal. Scattered sigmoid diverticulosis. Retroflexion was performed in the rectum and no lesions were seen. The patient tolerated the procedure well. IMPRESSION: Normal-appearing colon from rectum to cecum with no evidence of colorectal neoplasia Scattered sigmoid diverticulosis. RECOMMENDATIONS: Findings of this examination were discussed with the patient as well as his family. He was advised to have have repeat screening colonoscopy at age 81.
[2024-10-18 09:28] VITALS: RESP 16
[2024-10-18 09:43] VITALS: BP 127/61; PULSE 60
== END 2024-10-18 10:04 | disposition home or self-care (01) ==
LOC: ORWHC2ENDO 07:39
PROVIDERS: ATTEND Internal Medicine Gastroenterology
DX: Z12.11 Encounter for screening for malignant neoplasm of colon (principal); K57.30 Diverticulosis of large intestine without perforation or abscess without bleeding; I10 Essential (primary) hypertension; E11.9 Type 2 diabetes mellitus without complications; E78.5 Hyperlipidemia, unspecified; K21.9 Gastro-esophageal reflux disease without esophagitis; Z88.8 Allergy status to other drugs, medicaments and biological substances; Z91.048 Other nonmedicinal substance allergy status; Z79.84 Long term (current) use of oral hypoglycemic drugs; Z79.899 Other long term (current) drug therapy
CPT/HCPCS: 45378; J2704

== ENCOUNTER → 2024-10-21 | Outpatient (CLI) | payer BC ==
--- NOTE | 2024-10-21 10:01 | US ---
EXAMINATION TYPE: US carotid duplex BILAT DATE OF EXAM: 10/21/2024 COMPARISON: NONE CLINICAL INDICATION: Male, 74 years old with history of I65.23 STENOSIS; screening Additional History: .... TECHNIQUE: Grayscale, color Doppler and spectral Doppler evaluation of the bilateral carotid systems and vertebral arteries. Indirect Doppler criteria was utilized. FINDINGS: EXAM MEASUREMENTS: RIGHT: Peak Systolic Velocity (PSV) cm/sec ----- Right CCA: 83.1 ----- Right ICA: 108.2 ----- Right ECA: 123.7 ICA/CCA ratio: 1.3 RIGHT: End Diastole cm/sec ----- Right CCA: 19.3 ----- Right ICA: 17.6 ----- Right ECA: 15.0 LEFT: Peak Systolic Velocity (PSV) cm/sec ----- Left CCA: 115.7 ----- Left ICA: 133.4 ----- Left ECA: 135.0 ICA/CCA ratio: 1.2 LEFT: End Diastole cm/sec ----- Left CCA: 22.0 ----- Left ICA: 22.0 ----- Left ECA: 13.9 VERTEBRALS (direction of flow): Right Vertebral: Antegrade Left Vertebral: Antegrade Rhythm: Normal PHYSICAL SCIENCE AIDE NOTES: Mild plaque bilateral bifurcations. Slightly increased velocities left ICA Color Doppler imaging shows patency with blood flow throughout the carotid artery. Spectral waveforms are within normal limits. IMPRESSION: Right: No hemodynamically significant stenosis. Left: Less than 50% stenosis of the carotid bifurcation. Criteria for Assigning % of Stenosis / Diameter reduction (Estimation based on the indirect measurements of the internal carotid artery velocities (ICA PSV). 1. Normal (no stenosis)=ICA PSV < 180 cm/s: ratio < 2.0: ICA EDV<40 cm/s. 2. Less than 50% stenosis=ICA PSV < 180 cm/s: ratio < 2.0: ICA EDV<40 cm/s. 3. 50 to 69% stenosis=ICA PSV of 180 to 230 cm/s: ration 2.0 ? 4.0: ICA EDV 40-100 cm/s. PSV 125-180 cm/sec and ICA/CCA PSV Ratio ? 2.0 is also consistent with 50-69% stenosis 4. Greater than 70% stenosis to near occlusion= ICA PSV > 230 cm/s: ratio > 4.0: ICA EDV > 100 cm/s. 5. Near occlusion= ICA PSV velocities may be low or undetectable: variable ratio and ICA EDV. 6. Total occlusion=unable to detect flow. [facility], , 10/21/2024 9:59 AM
== END | disposition home or self-care (01) ==
LOC: RADUSWWP 09:18
PROVIDERS: ATTEND Internal Medicine
DX: I65.23 Occlusion and stenosis of bilateral carotid arteries (principal)
CPT/HCPCS: 93880